=== PATIENT | female | born 1955 | race Caucasian/White ===

== ENCOUNTER 2019-12-13 06:42 | Outpatient (CLI) | payer OTHER, SELFPAY ==
--- NOTE | ~2019-12-13 | CT_ITS ---
EXAMINATION: CT abdomen pelvis wo con DATE: 12/13/2019 07:17 INDICATION: Right flank pain, history of kidney stones TECHNIQUE: Computed tomography (CT) of the abdomen and pelvis was performed without intravenous contr ast. The dose-length product (DLP) was 589.83 mGy-cm. Automated exposure control and iterative recons truction technique were employed. COMPARISON: 03/17/2011 FINDINGS: The lung bases are clear. The heart size is normal. Punctate calcification in the otherwise normal spleen is consistent with old granulomatous disease. The liver, pancreas, gallbladder, and ad renal glands are normal. 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 There are punctate nonobstructing stones in both kidneys. No stones are identified in the ure ters or bladder. There is no hydronephrosis or hydroureter. No pathologically enlarged abdominal or p elvic lymph nodes are identified. There is no free intraperitoneal gas or evidence of bowel obstructi on. There is mild lumbar spondylosis. IMPRESSION: 1. Punctate nonobstructing nephrolithiasis without acute findings. Reviewed, dictated and finalized at location B.
== END 2019-12-13 06:43 | disposition home or self-care (01) ==
PROVIDERS: PCP Nurse Practitioner Adult Health; Visit Provider Nurse Practitioner Adult Health
DX: R10.9 Unspecified abdominal pain (principal); N20.0 Calculus of kidney
CPT/HCPCS: 74176

== ENCOUNTER → 2019-12-18 11:22 | Outpatient (CLI) | payer OTHER, SELFPAY ==
--- NOTE | ~2019-12-18 | DEXA_ITS ---
Bone Density Report Name: Cheyanne Estevez Age: 64 Sex: Female Ethnicity: White Date of : 1955 Indication: postmenopausal; screening for osteoporosis; Referring Provider: VICTORIA, MATTI Study: Bone densitometry was performed. Exam Date: December 18, 2019 Accession number: [id number] Bone Density: Region BMD T-score Z-score Classification AP Spine (L1-L4) 0.968 -0.7 0.9 Normal Femoral Neck (Left) 0.684 -1.5 -0.1 Osteopenia Total Hip (Left) 0.900 -0.3 0.7 Normal Femoral Neck (Right) 0.723 -1.1 0.3 Osteopenia Total Hip (Right) 0.913 -0.2 0.9 Normal Total Hip Mean 0.907 -0.3 0.8 Normal World Health Organization criteria for BMD impression classify patients as: Normal (T-score at or above -1.0), Osteopenia (T-score between -1.0 and -2.5), or Osteoporosis (T-score at or below -2.5). 10-year Fracture Risk(1): Major Osteoporotic Fracture 8.0% Hip Fracture 0.7% Reported Risk Factors: [place] (), Neck BMD=0.684, BMI=30.7 (1) FRAX(R) Version 3.08. Fracture probability calculated for an untreated patient. Fracture probability may be lower if the patient has received treatment. Previous Exams: Region Exam Age BMD T-score BMD Change BMD Change Date g/cm2 vs Baseline vs Previous AP Spine(L1-L4) 12/18/2019 64 0.968 -0.7 -0.120* -0.114* 01/07/2014 58 1.082 0.3 -0.006 -0.006 06/04/2009 54 1.088 0.4 Total Hip(Left) 12/18/2019 64 0.900 -0.3 -0.050* -0.058* 01/07/2014 58 0.958 0.1 0.009 0.009 06/04/2009 54 0.949 0.1 Total Hip(Right) 12/18/2019 64 0.913 -0.2 -0.031* -0.042* 01/07/2014 58 0.955 0.1 0.010 0.010 06/04/2009 54 0.944 0.0 *Denotes significance at 95% confidence level, LSC for AP Spine = 0.022 g/cm2, LSC for Total Hip = 0.027 g/cm2 Clinical Information Provided by Patient: Has used the following medications: Vitamin D Patient maximum height was 64.3 Menopause Age: 52 No regular weight bearing exercise Does not regularly consume dairy products Drinks caffeinated beverages Onset of menses at age 14 Number of children 4 Impression: The patient has low bone mass, based on the Left Femoral Neck T-score. The patient has an estimated ten-year risk of hip fracture of 0.7% and an estimated ten-year risk of major fracture of 8%, based on the WHO FRAX algorithm. The BMD for the AP Spine
== END ==
PROVIDERS: PCP Nurse Practitioner Adult Health; Visit Provider Nurse Practitioner Adult Health
DX: Z78.0 Asymptomatic menopausal state (principal); M85.89 Other specified disorders of bone density and structure, multiple sites
CPT/HCPCS: 77080

== ENCOUNTER 2021-02-20 10:50 | Outpatient (CLI) | payer OTHER, SELFPAY ==
--- NOTE | ~2021-02-20 | CT_ITS ---
EXAMINATION: CT shoulder RT wo con DATE: 02/20/2021 11:18 INDICATION: Right shoulder pain. TECHNIQUE: Computed tomography (CT) of the right shoulder was performed without intravenous contrast. Automated exposure control and iterative reconstruction technique were employed. The dose-length pro duct was 351.85 mGy-cm. COMPARISON: None FINDINGS: Bone alignment is normal. No fracture. There is mild osteoarthritis of the acromioclavicula r joint. Glenohumeral joint is normal. There are calcifications of the coracoclavicular ligament. The re is no asymmetric fatty atrophy of the rotator cuff muscle bellies. IMPRESSION: 1. Mild osteoarthritis of acromioclavicular joint. Reviewed, dictated and finalized at location A.
== END 2021-02-20 10:51 | disposition home or self-care (01) ==
PROVIDERS: PCP Nurse Practitioner Adult Health; Visit Provider Nurse Practitioner Adult Health
DX: M25.511 Pain in right shoulder (principal); M19.011 Primary osteoarthritis, right shoulder
CPT/HCPCS: 73200

== ENCOUNTER 2021-03-20 12:40 | Outpatient (CLI) | payer OTHER, SELFPAY ==
--- NOTE | ~2021-03-20 | XR_ITS ---
EXAMINATION: XR lg joint inject/asp w image DATE: 03/20/2021 13:52 INDICATION: Right frozen shoulder post fall 8 months prior TECHNIQUE: A time-out was performed to verify the patient's name, date of , and procedure to b e performed. The procedure including the risks, benefits, and alternatives was discussed with the pat ient. Risks discussed included bleeding and infection. The patient understood the risks and agreed to proceed. The skin overlying the rotator cuff interval of the right glenohumeral joint was prepped a nd draped in usual sterile fashion. Anesthetic was administered with 1% lidocaine subcutaneously. A 22 G needle was advanced under fluoroscopic guidance into the joint. Injection of 1 mL of Omnipaque 240 confirmed intra-articular position of the needle. Subsequently, injectate consisting of 5 mL of a 4:1 mixture of 1% lidocaine: 80 mg/mL Depo-Medrol for a total dosage of 80 mg Depo-Medrol was inst illed. Washout of contrast was seen confirming intra-articular administration. The needle was removed and the entry site was cleaned and dressed. There were no immediate complications. Fluoroscopy expo sure time was 0.1 minutes. The total number of images was 2. FINDINGS: Real-time fluoroscopy demonstrates the needle in the right glenohumeral joint. Patient's pa in prior to procedure:06/25. Patient's pain following the procedure: 05/25. IMPRESSION: 1. Right glenohumeral joint injection of local anesthetic and steroid with decrease in the patient's presenting pain. Reviewed, dictated and finalized at location A. IMPRESSION: 1. Right glenohumeral joint injection of local anesthetic and steroid with decr ease in the patient's presenting pain.
== END 2021-03-20 12:41 | disposition home or self-care (01) ==
PROVIDERS: PCP Nurse Practitioner Adult Health; Visit Provider Orthopaedic Surgery
DX: M75.01 Adhesive capsulitis of right shoulder (principal)
CPT/HCPCS: 20610; 77002; J1040; Q9966

== ENCOUNTER 2022-06-05 13:14 | Emergency (ER) | payer MEDICARE, SELFPAY ==
--- NOTE | ~2022-06-05 | XR_ITS ---
EXAMINATION: XR knee LT min 4V DATE: 06/05/2022 14:00 INDICATION: Left knee strain and pain. TECHNIQUE: 5 views of left knee were obtained. COMPARISON: None. FINDINGS: Bone alignment is normal. No fracture. There is mild tricompartmental osteoarthritis. No kn ee joint effusion. IMPRESSION: 1. Mild left knee osteoarthritis. Reviewed, dictated and finalized at location A. BUTCHER
--- NOTE | ~2022-06-05 | US_ITS ---
EXAMINATION: US venous doppler [facility] DATE: 06/05/2022 14:55 INDICATION: POSTERIOR KNEE PAIN/SWELLING . TECHNIQUE: Grayscale images without and with compression and Doppler images of the left lower extremi ty veins were obtained. COMPARISON: None FINDINGS: The left common femoral vein, profunda femoral vein, femoral vein, popliteal vein, peroneal vein, pos terior tibial veins, gastrocnemius vein, and greater saphenous vein are patent. IMPRESSION: 1. Patent left lower extremity veins. No evidence of deep venous thrombosis. Reviewed, dictated and finalized at location K. DLE COOK
[2022-06-05 13:42] VITALS: BP 160/72; PULSE 77; RESP 16; TEMP 36.6; O2SAT 98
--- NOTE | 2022-06-05 15:11 | ED.LOWEXIN ---
HPI - Extremity Injury (Lower) General Chief Complaint: Extremity Injury, Lower Stated Complaint: hurt my left leg Time Seen by Provider: 06/05/22 13:49 History of Present Illness HPI Narrative: Patient is a 67-year-old female who presents ER with left knee pain. Ongoing for 2 weeks. She had gone on a walk and was walking at a brisk pace. Afterwards she had increased soreness to the back of the knee. She has been taking ibuprofen Tylenol intermittently without improvement. Today she sitting to standing when she had sudden onset pain and had to be helped back up. No numbness or tingling. No chest pain with shortness of breath. No reports of pain with swallowing. Related Data Allergies Allergy/AdvReac Type Severity Reaction Status Date / Time No Known Allergies Allergy Unknown Verified 06/05/22 13:45 Review of Systems Review of Systems: All systems reviewed & are unremarkable except as noted in HPI and below Constitutional: Constitutional: Denies chills and Denies fever(s) Musculoskeletal: Musculoskeletal: Reports arthralgias, Reports joint swelling and Denies muscle cramps Neurologic: Denies numbness and Denies weakness PMFSH Past Medical History Medical History (Updated 06/05/22 @ 15:48 by Lennox Duff MD) Hyperlipidemia Kidney stone Left shoulder tendonitis Surgical History Surgical History (Updated 06/05/22 @ 15:48 by Lennox Duff MD) History of section History of lithotripsy Family History Family History (Updated 08/01/17 @ 13:12 by DOCTOR UNKNOWN) Other Family history of arthritis Social History Social History Smoking status: Never smoker Alcohol intake: current Exam Narrative: GENERAL: Well-appearing, well-nourished, and in no acute distress. HEAD: Normocephalic, atraumatic. EXTREMITIES: Left knee with mild tenderness in posterior aspect laterally but none over the hamstring. Slight effusion to the left compared to the right. No anterior joint line tenderness. No tenderness over the patella. Flexion intact. No pain with varus or valgus stress. Sensation intact. SKIN: Warm, dry, no rash. NEURO: Alert and oriented x3. PSYCH: Normal mood and affect. Course Course Emergency Course: Patient informed of results. No evidence of DVT. Marcelo's cyst. Jani wrap applied. Discharge home with anti-inflammatories recommend follow-up with PCP. Vital Signs Vital signs: Vital Signs Temperature 98 F 06/05/22 13:42 Pulse Rate 77 06/05/22 13:42 Respiratory Rate 16 06/05/22 13:42 Blood Pressure 160/72 H 06/05/22 13:42 Pulse Oximetry 98 06/05/22 13:42 Temperature 98 F 06/05/22 13:42 Pulse Rate 77 06/05/22 13:42 Respiratory Rate 16 06/05/22 13:42 Blood Pressure 160/72 H 06/05/22 13:42 Pulse Oximetry 98 06/05/22 13:42 Discharge Plan Discharge Clinical Impression: Effusion of knee joint, left Patient Disposition: Home, Self-Care Condition: Stable Instructions: P.R.I.C.E. Treatment (ED) Additional Instructions: Return the ER if you suffer new injury, your knee is red and hot, you develop fever over 100.4 ?F, you have additional concerns. Use your walker to ambulate to relieve pressure on your knee. If your symptoms not improve your PCP may want to order an MRI to evaluate for angiogram meniscus. You may require physical therapy as well. Prescriptions: New naproxen 375 mg tablet 375 mg PO BID Qty: 14 0RF Follow-up/Referrals: Buck,BRANT Berrios [Primary Care Provider] - 1 Week
--- NOTE | 2022-06-05 15:39 | ED_ITS ---
HPI - Extremity Injury (Lower) General Chief Complaint: Extremity Injury, Lower Stated Complaint: hurt my left leg Time Seen by Provider: 06/05/22 13:49 Related Data Allergies Allergy/AdvReac Type Severity Reaction Status Date / Time No Known Allergies Allergy Unknown Verified 06/05/22 13:45 [facility] Past Medical History Medical History (Updated 06/05/22 @ 15:48 by Lennox Duff MD) Hyperlipidemia Kidney stone Left shoulder tendonitis Surgical History Surgical History (Updated 06/05/22 @ 15:48 by Lennox Duff MD) History of section History of lithotripsy Family History Family History (Updated 08/01/17 @ 13:12 by DOCTOR UNKNOWN) Other Family history of arthritis Social History Social History Smoking status: Never smoker Alcohol intake: current Exam Narrative: GENERAL: Well-appearing, well-nourished, and in no acute distress. HEAD: Normocephalic, atraumatic. EXTREMITIES: Normal range of motion. No edema. SKIN: Warm, dry, no rash. NEURO: No focal deficits. Alert and oriented x3. PSYCH: Normal mood and affect. Course Course Emergency Course: Patient given Toradol injection. Jani wrap applied to knee. No evidence of DVT/Marcelo's cyst/fracture. Patient has a walker that she can ambulate with at home. Vital Signs Vital signs: Vital Signs Temperature 98 F 06/05/22 13:42 Pulse Rate 77 06/05/22 13:42 Respiratory Rate 16 06/05/22 13:42 Blood Pressure 160/72 H 06/05/22 13:42 Pulse Oximetry 98 06/05/22 13:42 Temperature 98 F 06/05/22 13:42 Pulse Rate 77 06/05/22 13:42 Respiratory Rate 16 06/05/22 16:26 Blood Pressure 160/72 H 06/05/22 13:42 Pulse Oximetry 98 06/05/22 13:42 MDM - Extremity Injury (Lower) Imaging Data Radiologist's impression: ITS Impressions Knee X-Ray 06/05/22 14:01 IMPRESSION: 1. Mild left knee osteoarthritis. Venous Doppler Study 06/05/22 14:55 IMPRESSION: 1. Patent left lower extremity veins. No evidence of deep venous thrombosis. Discharge Plan Discharge Clinical Impression: Effusion of knee joint, left Patient Disposition: Home, Self-Care Condition: Stable Instructions: P.R.I.C.E. Treatment (ED) Additional Instructions: Return the ER if you suffer new injury, your knee is red and hot, you develop fever over 100.4 ?F, you have additional concerns. Use your walker to ambulate to relieve pressure on your knee. If your symptoms not improve your PCP may want to order an MRI to evaluate for angiogram meniscus. You may require physical therapy as well. Prescriptions: New naproxen 375 mg tablet 375 mg PO BID Qty: 14 0RF Follow-up/Referrals: Buck,BRANT Berrios [Primary Care Provider] - 1 Week
[2022-06-05] MEDS: KETOROLAC 30 MG/ML VIAL (*BKC) IM (16:14)
[2022-06-05 16:26] VITALS: RESP 16
== END 2022-06-05 16:27 | disposition home or self-care (01) ==
PROVIDERS: Emergency Provider Emergency Medicine; PCP Nurse Practitioner Adult Health
DX: M25.462 Effusion, left knee (principal); E78.5 Hyperlipidemia, unspecified
CPT/HCPCS: 73564; 93971; 96372; 99284; J1885